=== PATIENT | male | born 1990 | race African-American/Black ===

== ENCOUNTER 2021-04-18 11:38 | Emergency (ER) | payer OTHER ==
[~2021-04-18] VITALS: Ht 182.9 cm; Wt 132.4 kg
[~2021-04-18 11:38] MED LIST: BENTYL 20 MG TA20 M1 PO; ZOFRAN ODT4 MG PO
[2021-04-18 12:00] VITALS: BP 126/65
[2021-04-18] MEDS ORDERED: PREDNISONE50 MG PO (13:22)
== END 2021-04-18 13:22 | disposition home or self-care (01) ==
LOC: ER 11:38
DX: J03.90 Acute tonsillitis, unspecified (principal); Z79.899 Other long term (current) drug therapy